=== PATIENT | female | born 1995 | race Caucasian/White ===

== ENCOUNTER 2023-12-17 16:21 | Emergency (ER) | payer OTHER ==
[~2023-12-17] VITALS: Ht 170.2 cm; Wt 54.0 kg
[2023-12-17 16:43] VITALS: BP 113/76; PULSE 83; RESP 20; TEMP 98.1; O2SAT 100
[2023-12-17 16:54] VITALS: O2SAT 100
[2023-12-17] MEDS: ALUMINUM HYD/MAG/SIMETHICONE 30 ML UDC PO ONE (17:30)
[2023-12-17] MEDS ORDERED: CALC355O5 PO (17:37)
== END 2023-12-17 17:47 | disposition home or self-care (01) ==
LOC: MED 16:21
DX: K21.9 Gastro-esophageal reflux disease without esophagitis (principal); H93.13 Tinnitus, bilateral; Z79.899 Other long term (current) drug therapy
CPT/HCPCS: 93005; 99283

== ENCOUNTER 2024-06-25 22:54 | Emergency (ER) | payer OTHER ==
[~2024-06-25] VITALS: Ht 170.2 cm; Wt 59.0 kg
[~2024-06-25 22:54] MED LIST: CALC355O5 PO
--- NOTE | 2024-06-25 22:58 | NUR ---
PT TAKEN TO BED 5
[2024-06-25 23:00] VITALS: BP 106/71; PULSE 69; RESP 18; TEMP 98.2; O2SAT 99
--- NOTE | 2024-06-25 23:05 | NUR ---
PT AMBULATED TO RESTROOM FOR URINE COLLECTION.
--- NOTE | 2024-06-25 23:06 | NUR ---
PATIENT PRESENTS TO ED WITH X3 DAYS NOW C/O ABD PAIN AND PAINFUL URINATION . PT STATES HAS URGE TO PEE BUT CAN ONLY A LITTLE AT A TIME . C/O NAUSEA AND CHILLS; SKIN IS PINK/WARM/DRY; AAOX4 WITH EVEN AND STEADY GAIT; LUNGS CLEAR BL; HR EVEN AND REGULAR; PT DENIES ANY FEVER, CP, SOB, OR COUGH AT THIS TIME; PATIENT STATES PAIN OF 6/10 AT THIS TIME; VSS; PATIENT POSITIONED FOR COMFORT; HOB ELEVATED; BEDRAILS UP X2; BED DOWN. ER MD MADE AWARE OF PT STATUS. PMH DENIES NKA
--- NOTE | 2024-06-25 23:13 | NUR ---
URINE SENT TO LAB.
[2024-06-25 23:21] LABS: APPEARANCE,URINE CLEAR (CLEAR); BILIRUBIN,URINE NEGATIVE (NEGATIVE); BLOOD, URINE TRACE-I (NEGATIVE); COLOR,URINE YELLOW (YELLOW); LEUKOCYTE ESTERASE ,URINE TRACE (NEGATIVE); NITRITE, URINE NEGATIVE (NEGATIVE); PROTEIN,URINE TRACE (NEGATIVE); UGLUCOSE NEGATIVE (NEGATIVE); UROBILINOGEN,URINE 0.2 EU/dL (0.2 - 1)
[2024-06-25] MEDS: KETOROLAC 30 MG/ML VIAL IM ONE (23:33)
--- NOTE | 2024-06-25 23:34 | NUR ---
PT MEDICATED PER ERMD ORDER, PT TOLERATED WELL.
[2024-06-25 23:40] LABS: BACTERIA,URINE 10-30 (MOD) /HPF (None Seen); MUCUS,URINE 1+ /LPF (None Seen); SQUAMOUS EPITHELIAL CELL,UR 4-10 (MOD) /LPF (0-3 (FEW))
[2024-06-25] MEDS ORDERED: PYR100 PO (23:47)
[2024-06-25] MEDS ORDERED: CEPH-588 PO (23:47)
[2024-06-25] MEDS ORDERED: IBUP-2213 PO (23:47)
[2024-06-26 00:10] VITALS: BP 106/71; PULSE 73; RESP 18; TEMP 98.1; O2SAT 99
== END 2024-06-26 00:10 | disposition home or self-care (01) ==
LOC: MED 22:54
DX: N39.0 Urinary tract infection, site not specified (principal); Z79.899 Other long term (current) drug therapy
CPT/HCPCS: 81001; 81025; 87086; 96372; 99283; J1885